=== PATIENT | female | born 1960 | race Hispanic/Latino ===

== ENCOUNTER 2022-11-25 23:45 | Emergency (ER) | payer BC ==
[~2022-11-25] VITALS: Ht 160 cm; Wt 76.7 kg
[2022-11-25] MEDS ORDERED: ROCURONIUM BROMIDE 10MG/1ML 5ML VL IV ONE (23:46)
[2022-11-26] MEDS ORDERED: ACETAMINOPHEN 500 MG TABLET PO ONE
[2022-11-26] MEDS ORDERED: NALOXONE HCL 0.4 MG/1 ML ML ONE (00:05)
[2022-11-26 00:20] LABS: APPEARANCE,URINE CLEAR (CLEAR); BILIRUBIN,URINE NEGATIVE (NEGATIVE); COLOR,URINE LIGHT-YELLOW (YELLOW); GLUCOSE, URINE (UA) 30 mg/dL (NEGATIVE); KETONES,URINE 5 mg/dL (NEGATIVE); LEUKOCYTE ESTERASE ,URINE NEGATIVE Leu/uL (NEGATIVE); NITRATE,URINE NEGATIVE (NEGATIVE); OCCULT BLOOD,URINE LARGE (NEGATIVE); PROTEIN,URINE 300 mg/dL (NEGATIVE); UROBILINOGEN,URINE 0.2 mg/dL (0.2-1.0)
[2022-11-26 00:26] LABS: BASOPHILS % (AUTO) 0.2 % (0.0-5.0); HEMATOCRIT 41.5 % (36-48); LYMPHOCYTES % (AUTO) 7.3 % (21.0-51.0); MEAN CORPUSCULAR HEMOGLOBIN 29.7 pg (27.0-33.0); MEAN CORPUSCULAR HGB CONC 33.7 g/dL (32.0-36.0); MEAN CORPUSCULAR VOLUME 87.9 fL (79-99); MONOCYTES % (AUTO) 3.1 % (3.0-13.0); PLATELET COUNT (AUTO) 269 K/uL (130-400); RED BLOOD CELL COUNT(AUTO) 4.72 MIL/uL (4.00-5.50); RED CELL DISTRIBUTION WIDTH 13.2 % (11.0-15.5); WHITE BLOOD COUNT (AUTO) 17.8 K/uL (4.8-10.8)
[2022-11-26 00:27] LABS: AMPHET/METH SCREEN,URINE NEGATIVE (NEGATIVE); BARBITURATE SCREEN, URINE NEGATIVE (NEGATIVE); BENZODIAZEPINES SCREEN,URINE NEGATIVE (NEGATIVE); CANNABINOID SCREEN,URINE NEGATIVE (NEGATIVE); COCAINE SCREEN,URINE NEGATIVE (NEGATIVE); OPIATE SCREEN,URINE NEGATIVE (NEGATIVE); PHENCYCLIDINE SCREEN,URINE NEGATIVE (NEGATIVE)
[2022-11-26] MEDS ORDERED: 0.9%NACL 1000ML 3,000 ML IV ONE (00:30)
[2022-11-26] MEDS ORDERED: NALOXONE HCL 0.4 MG/1 ML ML IVP SCH (00:30)
[2022-11-26 00:31] LABS: CARBON DIOXIDE 22 mmol/L (21-32); CHLORIDE 101 mmol/L (101-111); CREATININE 1.3 mg/dL (0.5-1.5); GLOMERULAR FILTR. RATE CALC 44 mL/min (>60); GLUCOSE,RANDOM 159 mg/dL (70-105); POTASSIUM 4.1 mmol/L (3.5-5.1); SODIUM SERUM 141 mmol/L (136-145); UREA NITROGEN, BLOOD 14 mg/dL (7-18)
[2022-11-26 00:37] LABS: ALANINE AMINOTRANSFERASE 86 U/L (12-78); ALCOHOL, BLOOD < 3 mg/dL (0-10); AMMONIA 24 umol/L (11-32); ASPARTATE AMINOTRANSFERASE 39 U/L (10-37); TOTAL PROTEIN, SERUM 8.2 g/dL (6.0-8.3)
[2022-11-26 00:38] LABS: BACTERIA,URINE RARE /HPF (None Seen); MUCUS,URINE RARE LPF (None Seen); OTHER CASTS, URINE 1 /LPF (None Seen); RBC,URINE 26-50 /HPF (0-1)
[2022-11-26] MEDS ORDERED: LORAZEPAM 2 MG/ML 1 ML VIAL ONE (01:03)
[2022-11-26 01:15] LABS: CRP QUANTITATIVE 8.6 mg/L (0.00-9.0)
[2022-11-26] MEDS ORDERED: LORAZEPAM 2 MG/ML 1 ML VIAL IVP ONE (01:30)
[2022-11-26] MEDS ORDERED: MIDAZOLAM 50MG-0.9% NS 50ML 50 ML IV SCH (02:30)
[2022-11-26] MEDS ORDERED: LEVETIRACETAM 500 MG/5 ML SD VIAL IV SCH (02:30)
[2022-11-26] MEDS ORDERED: NICARDIPINE 25MG INJ IV ONE (02:57)
[2022-11-26] MEDS ORDERED: MANNITOL 25% 50ML VIAL IV SCH (03:00)
[2022-11-26] MEDS ORDERED: MIDAZOLAM 100MG-0.9% NS 100ML 100 ML IV SCH ×2 (03:00)
[2022-11-26] MEDS ORDERED: MIDAZOLAM 100MG-0.9% NS 100ML 100ML BAG IV SCH (03:00)
[2022-11-26] MEDS ORDERED: NICARDIPINE 25MG INJ 25 MG in 0.9% NACL 250ML 240 ML IV SCH (03:00)
[2022-11-26 03:17] LABS: ABG BASE EXCESS -3.2 mmol/L (-2.0-3.0); ABG HCO3 18.8 mmol/L (21.0-28.0); ABG PCO2 26 mmHg (32-45)
[2022-11-26] MEDS ORDERED: PROPOFOL 1000 MG/100 ML 100 ML IV ONE (03:56)
[2022-11-26] MEDS ORDERED: FENTANYL 2500MCG+NS 250ML 250 ML IV ONE (04:00)
[2022-11-26 04:29] VITALS: BP 135/78
== END 2022-11-26 04:35 | disposition short-term general hospital (02) ==
LOC: EDH 23:45
DX: I62.9 Nontraumatic intracranial hemorrhage, unspecified (principal); I10 Essential (primary) hypertension; Z20.822 Contact with and (suspected) exposure to COVID-19
CPT/HCPCS: 99285; 71045 ×2; 87635; 82947; 82550; 84484; 80053; 82803; 80305; 82140; 85025; 87040 ×2; 87077; 87186; 87804 ×2; 83605 ×2; 86140; 36415; 93005; 81001; 82435; 84132; 84295; 82948; 85018; 31500; 96365; 70450; 96375; 96366; 96368; 36600; C9803; J3490 ×2; J3010; J2310 ×2; J1953; J2704; J2060; 94002; 96361; 96376

== ENCOUNTER → 2024-06-18 | Outpatient (CLI) | payer OTHER | END | disposition home or self-care (01) | LOC: RAH 12:37 | PROVIDERS: ATTEND Family Medicine | DX: Z13.6 Encounter for screening for cardiovascular disorders (principal) | CPT/HCPCS: 75571 ==